=== PATIENT | male | born 1955 | race Caucasian/White ===

== ENCOUNTER → 2018-08-05 | Outpatient (CLI) | payer BC ==
--- NOTE | 2018-08-05 10:51 | REP ---
Urinary tract sonography with renal artery Doppler flow assessment: History: Peyronie's disease. Rule out renovascular disease. Morphologic findings: Renal cortical echogenicity pattern is normal and renal contours are smooth bilaterally. There is no evidence of hydronephrosis or mass on either side. There is a lower pole cyst affecting the left kidney measuring 2.8 x 2.4 x 2.4 cm. Left renal dimensions are 12.4 x 5.5 x 6.5 cm. The right kidney measures 10.7 x 5.2 x 4.4 cm. Impression: Lower pole cyst left kidney. Renal artery Doppler flow assessment: Peak systolic flow velocity abdominal aorta at the level of the main renal arteries is normal at 44.1 cm/sec. Peak systolic flow velocity in the right main renal artery is recorded at 73.8 cm/sec and that in the left main renal artery at 63.5 cm/sec. Renal to aortic flow velocity ratios are therefore normal at 1.5 on the right and 1.4 on the left. Acceleration times and resistive indices are measured in the intralobar arteries of the upper, mid, and lower pole of each kidney. These values are normal bilaterally. Impression: No evidence of renal artery stenosis. Electronically Signed by Abner Pendleton MD 08/05/2018 08:30 P
== END ==
LOC: M RAD 07:27
PROVIDERS: ATTEND Urology Pediatric Urology
DX: N48.6 Induration penis plastica (principal)

== ENCOUNTER → 2019-12-22 | Outpatient (REF) | payer BC ==
[2019-12-22 18:04] LABS: APPEARANCE, URINE CLEAR (CLEAR); BACTERIA, URINE AUTO NEGATIVE (NEGATIVE); BILIRUBIN, URINE AUTO NEGATIVE (NEGATIVE); BLOOD, URINE BLOOD NEGATIVE (NEGATIVE); CALCIUM OXALATE CRYSTALS SMALL; COLOR, URINE YELLOW (YELLOW); GLUCOSE, URINE (UA) AUTO NEGATIVE (NEGATIVE); KETONE, URINE AUTO NEGATIVE (NEGATIVE); LEUKOCYTE ESTERASE, URINE AUTO NEGATIVE (NEGATIVE); MUCUS, URINE SMALL (NEGATIVE); NITRITE, URINE AUTO NEGATIVE (NEGATIVE); PROTEIN, URINE AUTO NEGATIVE (NEGATIVE); RBC, URINE AUTO 1 /HPF (0-3); SPECIFIC GRAVITY URINE AUTO 1.027 (1.002-1.035); SQUAMOUS EPITHELIAL CELL UR AU 0 /HPF (0-6); UROBILINOGEN, URINE AUTO 0.2 mg/dL (0.0-2.0); WBC, URINE AUTO 1 /HPF (0-3)
== END ==
LOC: M SMT 16:54
PROVIDERS: ATTEND Nurse Practitioner Women's Health
DX: N40.1 Benign prostatic hyperplasia with lower urinary tract symptoms (principal)